=== PATIENT | female | born 1975 | race Caucasian/White ===

== ENCOUNTER 2022-11-03 06:42 | Day surgery (SDC) | payer BC ==
[~2022-11-03 06:42] MED LIST: Dextrose 5%-0.45% NaCl 1,000 ML IV SCH; Midazolam 1 MG/ML 2 ML SDV ONE; Sodium Chloride 0.9% 10 ML Syringe FLUSH PRN; Sodium Chloride 0.9% 10 ML Syringe FLUSH SCH; fentaNYL 100 MCG/2 ML SDV ONE
[2022-11-03] MEDS ORDERED: fentaNYL 100 MCG/2 ML SDV IV ONE ×3 (06:43→07:44)
[2022-11-03] MEDS ORDERED: Midazolam 1 MG/ML 2 ML SDV IV ONE ×3 (06:43→07:45)
== END 2022-11-03 09:30 | disposition home or self-care (01) ==
LOC: DL.ENDO 06:42
PROVIDERS: ATTEND Internal Medicine Gastroenterology
DX: K29.50 Unspecified chronic gastritis without bleeding (principal); K22.89 Other specified disease of esophagus; K22.2 Esophageal obstruction; K31.7 Polyp of stomach and duodenum; E66.09 Other obesity due to excess calories; E03.9 Hypothyroidism, unspecified; Z68.25 Body mass index [BMI] 25.0-25.9, adult; Z98.890 Other specified postprocedural states; Z79.899 Other long term (current) drug therapy
CPT/HCPCS: 87077; J2250; J3010; J7042

== ENCOUNTER 2022-11-16 06:38 | Day surgery (SDC) | payer BC ==
[~2022-11-16 06:38] MED LIST changes: -Dextrose 5%-0.45% NaCl 1,000 ML IV SCH
[2022-11-16] MEDS ORDERED: fentaNYL 100 MCG/2 ML SDV IV ONE (06:39)
[2022-11-16] MEDS ORDERED: Midazolam 1 MG/ML 2 ML SDV IV ONE (06:39)
[2022-11-16] MEDS: Dextrose 5%-0.45% NaCl 1,000 ML IV SCH (07:08)
[2022-11-16] MEDS: fentaNYL 100 MCG/2 ML SDV IV ONE ×4 (07:37→07:57)
[2022-11-16] MEDS: Midazolam 1 MG/ML 2 ML SDV IV ONE ×6 (07:37→07:48)
[2022-11-16 10:12] VITALS: BP 100/62; PULSE 56
== END 2022-11-16 09:35 | disposition home or self-care (01) ==
LOC: DL.ENDO 06:38
PROVIDERS: ATTEND Internal Medicine Gastroenterology
DX: Z12.11 Encounter for screening for malignant neoplasm of colon (principal); D12.2 Benign neoplasm of ascending colon; D12.4 Benign neoplasm of descending colon; E66.09 Other obesity due to excess calories; E03.9 Hypothyroidism, unspecified; Z68.27 Body mass index [BMI] 27.0-27.9, adult
CPT/HCPCS: J2250; J3010; J7042